=== PATIENT | female | born 1945 | race Caucasian/White ===

== ENCOUNTER 2017-02-26 19:32 | Outpatient (CLI) | payer MEDICARE, OTHER | END 2017-02-26 19:33 | disposition critical access hospital (66) | DX: R47.89 Other speech disturbances (principal); R51 Headache; M79.602 Pain in left arm | CPT/HCPCS: A0425; A0429 ==

== ENCOUNTER 2017-02-26 19:39 | Emergency (ER) | payer MEDICARE, OTHER ==
[2017-02-26] MEDS ORDERED: LORazepam 2 MG/ML SYRINGE IVP STA (19:49)
[2017-02-26] MEDS ORDERED: LORazepam 2 MG/ML SYRINGE ONE (20:02)
[2017-02-26] MEDS ORDERED: KETOROLAC 60 MG/2 ML VIAL IVP STA (21:01)
[2017-02-26] MEDS ORDERED: PROCHLORPERAZINE 10 MG/2 ML VIAL IVP STA (21:01)
[2017-02-26] MEDS ORDERED: diphenhydrAMINE INJ 50 MG/ML VIAL IVP STA (21:01)
[2017-02-26] MEDS ORDERED: diphenhydrAMINE INJ 50 MG/ML VIAL ONE (21:08)
[2017-02-26] MEDS ORDERED: KETOROLAC 30 MG/ML VIAL ONE (21:08)
[2017-02-26] MEDS ORDERED: PROCHLORPERAZINE 10 MG/2 ML VIAL ONE (21:08)
== END 2017-02-26 23:00 | disposition home or self-care (01) ==
DX: R41.82 Altered mental status, unspecified (principal); R51 Headache; I10 Essential (primary) hypertension; I48.91 Unspecified atrial fibrillation; Z79.02 Long term (current) use of antithrombotics/antiplatelets; E11.42 Type 2 diabetes mellitus with diabetic polyneuropathy; Z79.4 Long term (current) use of insulin; Z86.73 Personal history of transient ischemic attack (TIA), and cerebral infarction without residual deficits; Z87.442 Personal history of urinary calculi
CPT/HCPCS: 36415; 70450; 73030; 73110; 80053; 83690; 85025; 96374; 96375; 99285; J2060

== ENCOUNTER 2017-06-01 09:16 | Outpatient (CLI) | payer MEDICARE, OTHER | END 2017-06-01 09:17 | disposition critical access hospital (66) | DX: S01.81XA Laceration without foreign body of other part of head, initial encounter (principal); M54.2 Cervicalgia; R55 Syncope and collapse; W19.XXXA Unspecified fall, initial encounter; Y92.009 Unspecified place in unspecified non-institutional (private) residence as the place of occurrence of the external cause | CPT/HCPCS: A0425; A0427 ==

== ENCOUNTER 2017-06-01 09:26 | Emergency (ER) | payer MEDICARE, OTHER ==
--- NOTE | 2017-06-01 09:59 | ED Physician Documentation ---
PD HPI HEAD INJURY - Stated complaint Stated Complaint: FALL - Chief complaint Chief Complaint: Neuro - History obtained from History obtained from: Patient, Family, EMS - History of Present Illness Mechanism of head injury: Fell Where head injury occurred: Home Timing - onset: Today Location of injury: Left, Front Quality of pain: Pain, Throbbing Associated symptoms: LOC, Nausea / vomiting, Neck pain. No: Paresthesias, Seizures, Ear drainage, Nasal drainage Symptoms improve with: Rest Symptoms worsen with: Palpation, Movement Contributing factors: Anticoagulated (on plavix) Similar symptoms before: Has not had sx before Recently seen: Other (Recent decline in health) - Additional information Additional information: 72-year-old female with a history of atrial fibrillation complicated by atrial rupture in a procedure has had declining health over the past 2 months with Orthostatic hypotension and syncope she is no longer able to stand for long periods of time. Today her was assisting her to the commode and he reached [facility] and the patient collapsed injuring the left side of her head she has significant neck pain as well. Review of Systems Constitutional: reports: Chills, Myalgias, Fatigue. denies: Fever Eyes: denies: Decreased vision Ears: denies: Ear pain Nose: denies: Rhinorrhea / runny nose, Congestion Throat: denies: Sore throat Cardiac: denies: Chest pain / pressure, Palpitations Respiratory: reports: Dyspnea GI: reports: Nausea, Vomiting (for 2 weeks with syncopal episodes), Diarrhea (X 2 days) : denies: Dysuria, Frequency Skin: denies: Rash Musculoskeletal: reports: Neck pain. denies: Back pain, Extremity pain Neurologic: reports: Generalized weakness, Near syncope, Syncope (multiple episodes). 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 Cardiovascular: Coronary stent, Cardiac catheterization, Other HEENT: Cataracts - Present Medications Home Medications: Ambulatory Orders Medication Instructions Recorded Confirmed Insulin Glargine,Hum.rec.anlog 15 units SQ DAILY 02/15/14 10/23/16 [Lantus] Losartan Potassium [Cozaar] 25 mg PO DAILY 02/15/14 02/26/17 Metoprolol Succinate 50 mg PO QPM 02/15/14 02/26/17 Ustekinumab [Stelara] 90 mg SUBQ Q90D 02/15/14 10/23/16 Clopidogrel Bisulfate [Plavix] 75 mg PO DAILY #30 tablet 10/17/16 02/26/17 Insulin Glargine,Hum.rec.anlog 17 units SQ QPM 10/17/16 02/26/17 [Lantus Solostar] Insulin Lispro [Humalog] 2 - 4 unit SQ 02/26/17 - Allergies Allergies/Adverse Reactions: Allergies Allergy/AdvReac Type Severity Reaction Status Date / Time procaine [Procaine] Allergy Severe Dizziness Verified 02/26/17 19:50 tetanus immune globulin Allergy Intermediate Hives Verified 02/26/17 19:50 - Social History Does the pt smoke?: No Smoking Status: Never smoker Does the pt drink ETOH?: No Does the pt have substance abuse?: No - Immunizations Immunizations are current?: Yes - POLST Patient has POLST: No PD ED PE NORMAL - Vitals Vital signs reviewed: Yes (tachy and hypertensive ) - General General: Well developed/nourished, Other (moaning in pain with a blood saturated dressing over the forehead and it appears the blood is coming from the left side. Appears to winch in pain with any movement of the head. ) - HEENT HEENT: PERRL, EOMI - Neck Neck: Other (There is specific and sensitive pain to palpation of the right side of the neck. 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, Normal speech, Other (pre- existing thenar wasting is present bilaterally and symetrically ) - Psych Psych: Normal mood, Normal affect Results - Vitals Vitals: Vital Signs - 24 hr 06/01/17 06/01/17 06/01/17 09:28 09:30 11:37 Temperature 36.0 C L Heart Rate 123 H 119 H 119 H Respiratory 22 16 18 Rate Blood Pressure 164/103 H 164/102 H O2 Saturation 100 100 97 06/01/17 06/01/17 06/01/17 12:47 13:07 13:51 Temperature Heart Rate 119 H 104 H 102 H Respiratory 18 16 16 Rate Blood Pressure 201/101 H 189/99 H 162/84 H O2 Saturation 96 100 100 06/01/17 06/01/17 14:48 16:18 Temperature Heart Rate 101 H 104 H Respiratory 18 18 Rate Blood Pressure 149/78 H 164/84 H O2 Saturation 100 100 Oxygen O2 Source Room air - Labs Labs: Laboratory Tests 06/01/17 06/01/17 06/01/17 09:39 09:39 09:39 WBC 8.6 RBC 3.75 L Hgb 11.6 L Hct 34.3 L MCV 91.5 MCH 31.0 MCHC 33.9 RDW 15.1 H Plt Count 263 MPV 8.2 Neut # 6.2 Lymph # 1.6 Thomas # 0.8 Eos # 0.0 Baso # 0.0 Absolute Nucleated RBC 0.00 Nucleated RBCs 0.0 Sodium 138 Potassium 4.2 Chloride 104 Carbon Dioxide 22 Anion Gap 12.0 BUN 42 H Creatinine 2.5 H Estimated GFR (MDRD) 19 L Glucose 212 H Calcium 9.3 Total Bilirubin 0.6 AST 22 ALT 15 Alkaline Phosphatase 64 Troponin I < 0.04 Total Protein 6.6 L Albumin 3.2 Globulin 3.4 Albumin/Globulin Ratio 0.9 L Lipase 38 - Rads (name of study) CT Head without Radiology: Prelim report reviewed (Impression: Generalized age-related chronic changes without evidence of acute intracranial abnormality when compared to 02/26. Soft tissue swelling overlying the left skull.), EMP read indepedently, See rad report cervical spine Radiology: Prelim report reviewed (Impression: Nondisplaced type II dens fracture. Scattered degenerative changes in the cervical spine.), EMP read indepedently, See rad report Procedures - Laceration (location) scalp Length in cm: 4 Wound type: Linear, Into subcut fat, Clean Neurovascular status: Sensory intact, Motor intact, Vascular intact Anesthesia: Lidocaine 1% with epi Wound Preparation: Hibiclens, Irrigated copiously NS, Wound explored, To the base Skin layer closure: [place] Other: Patient tolerated well, No complications, Neurovascular intact, Dressing applied, Other (prior reaction to tetanus toxoid) Complexity: Simple - IVC sono (time) 0955 Bedside IVC sono: IVC measures (cm) (0.88), IVC collapsed c insp (cm) (complete) , Significant dehydration PD MEDICAL DECISION MAKING - ED course Complexity details: reviewed old records, reviewed results, re-evaluated patient , considered differential, d/w patient, d/w family, d/w product/industry consultant (Dr. 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 Here in the emergency department she does have pain in the right side of her neck and a type II nondisplaced dens fracture. She also has a 5 cm laceration over the left scalp that does not involve deeper structures. There is no skull fracture and CT scan of the brain is without evidence of intracranial hemorrhage. Her wound is stapled and she is administered fentanyl for pain control and Zofran for nausea. She is found to be significantly dehydrated on interrogation of the inferior vena cava and she is administered 2 L of normal saline intravenously. She has improvement in her blood pressure and pulse. Dr. Herndon is consulted in the case from [facility] and recommends conservative treatment of the cervical fracture. He recommends placement in a hard collar for 2 weeks and reevaluation. He has made arrangements for an appointment for follow-up. The patient herself continues to have nausea and vomiting and will need to be admitted into the hospital for stabilization of her vomiting and dehydration as well as pain control. The hospitalist here Dr. Simons refuses admission as she is uncomfortable with the cervical fracture not being treated at a trauma center. The patient does not want to go to [facility] and her is able to make a connection to [facility] for admission there. Departure - Departure Disposition: 02 Transfer Acute Care Hosp Clinical Impression: Dehydration, Vomiting and diarrhea Nondisplaced type II dens fracture Qualifiers: Encounter type: initial encounter Fracture type: closed Qualified Code(s): S12.112A - Nondisplaced Type II dens fracture, initial encounter for closed fracture Scalp laceration Qualifiers: Encounter type: initial encounter Qualified Code(s): S01.01XA - Laceration without foreign body of scalp, initial encounter
[2017-06-01 10:05] LABS: BASOPHILS % (AUTO) 0.5 %; EOSINOPHILS % (AUTO) 0.5 %; HCT - HEMATOCRIT 34.3 % (37.0-47.0); HGB - HEMOGLOBIN 11.6 g/dL (12.0-16.0); LYMPHOCYTES # (AUTO) 1.6 10^3/uL (1.5-3.5); LYMPHOCYTES % (AUTO) 18.4 %; MEAN CORPUSCULAR HGB CONC 33.9 g/dL (32.0-36.0); MEAN CORPUSCULAR VOLUME 91.5 fL (81.0-99.0); MEAN PLATELET VOLUME 8.2 fL (7.9-10.8); MONOCYTES # (AUTO) 0.8 10^3/uL (0.0-1.0); MONOCYTES % (AUTO) 8.9 %; NEUTROPHILS # (AUTO) 6.2 10^3/uL (1.5-6.6); NEUTROPHILS % (AUTO) 71.7 %; RED BLOOD COUNT 3.75 10^6/uL (4.20-5.40); RED CELL DISTRIBUTION WIDTH 15.1 % (12.0-15.0); UNCORRECTED WHITE BLOOD COUNT 8.6 x10^3/uL; WHITE BLOOD COUNT 8.6 x10^3/uL (4.8-10.8)
[2017-06-01 10:13] LABS: ALBUMIN/GLOBULIN RATIO 0.9 (1.0-2.2); BILIRUBIN,TOTAL 0.6 mg/dL (0.2-1.0); CALCIUM 9.3 mg/dL (8.5-10.3); CREATININE 2.5 mg/dL (0.4-1.0); POTASSIUM 4.2 mmol/L (3.5-5.0); TOTAL PROTEIN 6.6 g/dL (6.7-8.2)
[2017-06-01] MEDS ORDERED: LIDOCAINE 1%-EPI 1:100000 20 ML MDV ONE (10:36)
[2017-06-01] MEDS ORDERED: ONDANSETRON 4 MG/2 ML VIAL ONE ×2 (10:42→13:43)
[2017-06-01] MEDS ORDERED: SODIUM CHLORIDE 0.9% 1,000 ML IV ONE ×2 (11:01→11:02)
--- NOTE | 2017-06-01 11:04 | CT Preliminary Report ---
Exam: CT Head W/O IMPRESSION: Generalized age-related chronic changes without evidence of acute intracranial abnormalit y when compared with 02/26/2017. Severe soft tissue swelling overlying the left skull. [facility] SITE ID: [id number]
--- NOTE | 2017-06-01 11:07 | CT Report ---
EXAM: CT HEAD EXAM DATE: 06/01/2017 10:29 AM. CLINICAL HISTORY: Fall head inj plavix. COMPARISON: 02/26/2017 TECHNIQUE: Multiaxial CT images were obtained from the foramen magnum to the vertex. IV contrast: Non e. Reformats: Coronal. In accordance with CT protocol optimization, one or more of the following dose reduction techniques w ere utilized for this exam: automated exposure control, adjustment of mA and/or KV based on patient s ize, or use of iterative reconstructive technique. FINDINGS: Parenchyma: No intraparenchymal hemorrhage. No evidence of mass, midline shift, or CT findings of acu te infarction. Allen-white differentiation is distinct. Extraaxial Spaces: Normal for age. No subdural or epidural collections identified. Ventricles: The ventricles and cortical sulci are enlarged, consistent with age-related tissue loss. Sinuses: Trace membrane thickening Bones: No evidence of fracture or calvarial defect. Soft tissues: Severe soft tissue swelling overlying the left skull. Other: Diffuse chronic microangiopathic white matter changes are evident. IMPRESSION: Generalized age-related chronic changes without evidence of acute intracranial abnormalit y when compared with 02/26/2017. Severe soft tissue swelling overlying the left skull. [facility] Referring Provider Line: [phone] SITE ID: [id number]
--- NOTE | 2017-06-01 11:18 | CT Preliminary Report ---
Exam: CT Cervical Spine W/O IMPRESSION: Nondisplaced type II dens fracture. Scattered degenerative change in the cervical spine. Results called to Dr. Acosta 06/01/2017 at 11:16 AM [facility] SITE ID: [id number]
--- NOTE | 2017-06-01 11:21 | CT Report ---
EXAM: CT CERVICAL SPINE WITHOUT CONTRAST DATE: 06/01/2017 10:30 AM HISTORY: Fall head injury right sided neck pain. COMPARISONS: 10/16/[address] angiogram TECHNIQUE: Thin-section axial images were acquired of the cervical spine without contrast. Post-proce ssing: Coronal and sagittal reformats. Other: None. In accordance with CT protocol optimization, one or more of the following dose reduction techniques w ere utilized for this exam: automated exposure control, adjustment of mA and/or KV based on patient s ize, or use of iterative reconstructive technique. FINDINGS: Alignment: Normal. No scoliosis or spondylolisthesis. Bones: Nondisplaced type II dens fracture Interspace Levels/Facets: C1-C2 through C7-T1: Degenerative disk space narrowing C4-C5, C5-C6 and C6-C7. Scattered multilevel d egenerative facet joint arthropathy. Musculature: Normal. No fatty atrophy. Other: The paravertebral and prevertebral soft tissues are normal. IMPRESSION: Nondisplaced type II dens fracture. Scattered degenerative change in the cervical spine. Results called to Dr. Acosta 06/01/2017 at 11:16 AM [facility] Referring Provider Line: [phone] SITE ID: [id number]
[2017-06-01] MEDS ORDERED: fentaNYL 100 MCG/2 ML VIAL IVP STA ×3 (12:15→16:47)
[2017-06-01] MEDS ORDERED: fentaNYL 100 MCG/2 ML VIAL ONE ×3 (12:29→16:48)
[2017-06-01] MEDS ORDERED: ONDANSETRON 4 MG/2 ML VIAL IVP STA (13:49)
[2017-06-01 16:19] VITALS: BP 164/84
[2017-06-01 16:35] LABS: BILIRUBIN,URINE NEGATIVE (NEGATIVE)
[2017-06-01 16:55] LABS: UA w/ MICROSCOPIC CHARGE YES
[2017-06-01 16:58] LABS: UR CULTURE IF IND INDICATED; WBC,URINE >25 /HPF (0-5)
== END 2017-06-01 16:59 | disposition short-term general hospital (02) ==
LOC: EDUNIT# → ED 09:26
DX: S12.9XXA Fracture of neck, unspecified, initial encounter (principal); S01.01XA Laceration without foreign body of scalp, initial encounter; W04.XXXA Fall while being carried or supported by other persons, initial encounter; Y92.002 Bathroom of unspecified non-institutional (private) residence as the place of occurrence of the external cause; E86.0 Dehydration; R11.10 Vomiting, unspecified; R19.7 Diarrhea, unspecified; E11.42 Type 2 diabetes mellitus with diabetic polyneuropathy; Z79.4 Long term (current) use of insulin; I48.91 Unspecified atrial fibrillation; Z90.710 Acquired absence of both cervix and uterus; Z98.61 Coronary angioplasty status; Z86.73 Personal history of transient ischemic attack (TIA), and cerebral infarction without residual deficits
CPT/HCPCS: 12002; 36415; 51702; 70450; 72125; 80053; 81001; 81003; 83690; 84484; 85025; 87086; 96361; 96374; 96375; 96376; 99285

== ENCOUNTER 2017-06-01 17:05 | Outpatient (CLI) | payer MEDICARE, OTHER | END 2017-06-01 17:06 | disposition short-term general hospital (02) | DX: S12.001A Unspecified nondisplaced fracture of first cervical vertebra, initial encounter for closed fracture (principal); W18.12XA Fall from or off toilet with subsequent striking against object, initial encounter | CPT/HCPCS: A0425; A0426 ==

== ENCOUNTER 2017-12-30 15:17 | Outpatient (CLI) | payer MEDICARE, OTHER ==
--- NOTE | 2018-01-01 10:28 | CT Report ---
EXAM: CT CERVICAL SPINE WITHOUT CONTRAST DATE: 12/30/2017 03:41 PM. HISTORY: Pain in unspecified joint. COMPARISONS: CT scan of the head from 06/01/2017. No previous CT scans of the cervical spine availabl e for comparison at this time. TECHNIQUE: Thin-section axial images were acquired of the cervical spine without contrast. Post-proce ssing: Coronal and sagittal reformats. Other: None. In accordance with CT protocol optimization, one or more of the following dose reduction techniques w ere utilized for this exam: automated exposure control, adjustment of mA and/or KV based on patient s ize, or use of iterative reconstructive technique. FINDINGS: Alignment: No scoliosis or spondylolisthesis. Bones: Fractures of the base of the odontoid without bony bridging or displacement. Series 7 image 42 , series 6 image 31. No other fractures. Interspace Levels/Facets: C1-C2: As noted, fracture through the base of the odontoid. On the left side, small adjacent loose phi dies are seen at the margin of the left lateral C1-C2 articulation, series 7 image 34. C2-C3: Some disk space height loss, no central or foraminal stenosis. Prominent facets. C3-C4: Some disk space height loss, no stenosis. Prominent facets. C4-C5: Disk space height loss, prominent facets and no stenosis. C5-C6: Disk space height loss, prominent facets. Mild left foraminal stenosis. C6-C7: Disk space height loss and some early osteoarthritic spurring is present. No central or forami nal stenosis. C7-T1: Unremarkable. Musculature: Normal. No fatty atrophy. Other: The paravertebral and prevertebral soft tissues are unremarkable. The lung apices are clear. IMPRESSION: 1. Nondisplaced fracture through the base of the odontoid without evidence of bony bridging or displa cement. 2. On the left side at C1-C2, small adjacent loose bodies are seen at the margin of the left lateral C1-C2 articulation. 3. C2-C3 shows some disk space height loss, no stenosis. 4. C3-C4 shows some disk space height loss and no stenosis. 5. C4-C5 shows disk space height loss, no stenosis. 6. C5-C6 shows mild left foraminal stenosis and some disk space height loss. 7. C7-T1 is unremarkable. [facility] Referring Provider Line: [phone] SITE ID: [id number]
== END 2017-12-30 15:18 | disposition home or self-care (01) ==
LOC: DI 15:17
PROVIDERS: ATTEND Internal Medicine
DX: S12.121D Other nondisplaced dens fracture, subsequent encounter for fracture with routine healing (principal); M47.892 Other spondylosis, cervical region; M50.81 Other cervical disc disorders, high cervical region; M24.08 Loose body, other site
CPT/HCPCS: 72125

== ENCOUNTER 2018-04-23 03:19 | Outpatient (CLI) | payer MEDICARE, OTHER | END 2018-04-23 03:20 | disposition short-term general hospital (02) | LOC: EMS 03:19 | PROVIDERS: ATTEND Surgery | DX: R10.30 Lower abdominal pain, unspecified (principal); R07.9 Chest pain, unspecified; R11.2 Nausea with vomiting, unspecified | CPT/HCPCS: A0425; A0427 ==

== ENCOUNTER 2018-06-30 23:44 | Outpatient (CLI) | payer MEDICARE, OTHER | END 2018-06-30 23:45 | disposition home or self-care (01) | LOC: LAB.R 23:44 | PROVIDERS: ATTEND Podiatrist | DX: L89.891 Pressure ulcer of other site, stage 1 (principal) | CPT/HCPCS: 87070; 87205 ==

== ENCOUNTER 2018-11-09 12:44 | Outpatient (CLI) | payer MEDICARE, OTHER | END 2018-11-09 12:45 | disposition short-term general hospital (02) | LOC: EMS 12:44 | PROVIDERS: ATTEND Surgery | DX: M25.551 Pain in right hip (principal); R07.89 Other chest pain; R11.2 Nausea with vomiting, unspecified | CPT/HCPCS: A0425; A0427 ==

== ENCOUNTER 2018-11-17 09:30 | Outpatient (CLI) | payer MEDICARE, OTHER | END 2018-11-17 09:31 | disposition home or self-care (01) | LOC: EMS 09:30 | PROVIDERS: ATTEND Surgery | DX: I95.1 Orthostatic hypotension (principal); R11.0 Nausea; Z74.01 Bed confinement status | CPT/HCPCS: A0425; A0428 ==

== ENCOUNTER 2018-11-28 13:54 | Outpatient (CLI) | payer MEDICARE, OTHER | END 2018-11-28 13:55 | disposition home or self-care (01) | LOC: LAB 13:54 | PROVIDERS: ATTEND Specialist | DX: D63.1 Anemia in chronic kidney disease (principal) | CPT/HCPCS: 36415; 85014; 85018 ==

== ENCOUNTER 2019-09-13 12:57 | Outpatient (CLI) | payer MEDICARE, OTHER | END 2019-09-13 12:58 | disposition short-term general hospital (02) | LOC: EMS 12:57 | PROVIDERS: ATTEND Surgery | DX: R53.1 Weakness (principal); Z99.2 Dependence on renal dialysis | CPT/HCPCS: A0425; A0429 ==

== ENCOUNTER 2019-11-01 10:54 | Outpatient (CLI) | payer MEDICARE, OTHER | END 2019-11-01 10:55 | disposition short-term general hospital (02) | LOC: EMS 10:54 | PROVIDERS: ATTEND Surgery | DX: R55 Syncope and collapse (principal); R03.1 Nonspecific low blood-pressure reading; R46.4 Slowness and poor responsiveness; R09.89 Other specified symptoms and signs involving the circulatory and respiratory systems; Z99.2 Dependence on renal dialysis; R53.1 Weakness | CPT/HCPCS: A0425; A0429 ==

== ENCOUNTER 2019-11-14 16:32 | Outpatient (CLI) | payer MEDICARE, OTHER | END 2019-11-14 16:33 | disposition home or self-care (01) | LOC: EMS 16:32 | PROVIDERS: ATTEND Surgery | DX: Z76.89 Persons encountering health services in other specified circumstances (principal) | CPT/HCPCS: A0425; A0428 ==